=== PATIENT | female | born 1970 | race Caucasian/White ===

== ENCOUNTER → 2019-08-06 | Outpatient (CLI) | payer OTHER ==
--- NOTE | 2019-08-06 22:36 | XCELERA REPORT ---
[address] [address] Transthoracic Echocardiogram Report Name: IMELDA ROJAS Age: 48 yrs Gender: Female : 1970 Patient Status: Outpatient Patient Location: [facility] Study Date: 08/06/2019 03:49 PM Height: 66 in Weight: 163 lb BSA: 1.8 m2 Procedure: A complete two-dimensional transthoracic echocardiogram was performed (2D, M-mode, spectral and color flow Doppler). The study was technically adequate with some images being suboptimal in quality. Reason For Study: SOB Ordering Physician: JENNIFER ZAYAS Performed By: Gina Major Interpretation Summary The left ventricular ejection fraction is normal. There is borderline concentric left ventricular hypertrophy. Doppler measurements suggest impaired left ventricular relaxation, which is associated with grade I/IV or mild diastolic dysfunction The left ventricle is grossly normal size. Wall motion cannot be accurately commented on, but no definite regional wall motion abnormalities noted. The right ventricular systolic function is normal. The left atrial size is normal. The right atrium is normal. There is a trace amount of mitral regurgitation There is no mitral valve stenosis. No aortic regurgitation is present. There is no aortic valve stenosis There is a trace or physiologic amount of tricuspid regurgitation Right ventricular systolic pressure is at the upper limits of normal The aortic root is not well visualized but is probably normal size. The inferior vena cava was not well visualized There is no pericardial effusion. MMode/2D Measurements & Calculations RVDd: 2.5 cm LVIDd: 4.1 cm FS: 33.9 % Ao root diam: 2.7 cm IVSd: 0.55 cm LVIDs: 2.7 cm EDV(Teich): 73.3 ml Ao root area: 5.8 cm2 LVPWd: 0.67 cm ESV(Teich): 27.0 ml EF(Teich): 63.2 % Doppler Measurements & Calculations MV E max jessica: MV dec slope: Ao V2 max: LV V1 max P.3 cm/sec 281.5 cm/sec2 129.7 cm/sec 3.9 mmHg MV A max jessica: MV dec time: 0.24 secAo max P.7 mmHgLV V1 max: 47.9 cm/sec 99.0 cm/sec MV E/A: 1.4 PA V2 max: PI end-d jessica: TR max jessica: 100.4 cm/sec 65.8 cm/sec 190.8 cm/sec PA max P.0 mmHg TR max P.6 mmHg Left Ventricle The left ventricle is grossly normal size. There is borderline concentric left ventricular hypertrophy. The left ventricular ejection fraction is normal. Doppler measurements suggest impaired left ventricular relaxation, which is associated with grade I/IV or mild diastolic dysfunction. Wall motion cannot be accurately commented on, but no definite regional wall motion abnormalities noted. Right Ventricle The right ventricle is grossly normal size. There is normal right ventricular wall thickness. The right ventricular systolic function is normal. Atria The right atrium is normal. The left atrial size is normal. Interarterial septum not well visualized and not well dopplered. Cannot comment on ASD/PFO presence. Mitral Valve The mitral valve leaflets are sclerotic, but show no functional abnormalities. There is no mitral valve stenosis. There is a trace amount of mitral regurgitation. Aortic Valve The aortic valve is grossly normal. There is no aortic valve stenosis. No aortic regurgitation is present. Tricuspid Valve The tricuspid valve is not well visualized, but is grossly normal. There is no tricuspid stenosis. There is a trace or physiologic amount of tricuspid regurgitation. Right ventricular systolic pressure is at the upper limits of normal. Pulmonic Valve The pulmonic valve is not well visualized. Great Vessels The aortic root is not well visualized but is probably normal size. The inferior vena cava was not well visualized. Effusions There is no pericardial effusion. : JENNIFER ZAYAS Shyamal
== END ==
LOC: SP 14:39
PROVIDERS: ATTEND Physician Assistant
DX: R06.09 Other forms of dyspnea (principal)
CPT/HCPCS: 93306

== ENCOUNTER → 2020-06-07 | Outpatient (CLI) | payer OTHER ==
[2020-06-07 16:09] LABS: ALBUMIN 4.2 g/dL (3.5-5.0); ALKALINE PHOSPHATASE 62 U/L (38-126); ASPARTATE AMINO TRANSFERASE 27 U/L (14-36); BILIRUBIN,DIRECT 0.2 mg/dL (0.0-0.4); BILIRUBIN,TOTAL 0.8 mg/dL (0.2-1.3); CHOLESTEROL 137.16 mg/dL (0-200); TOTAL PROTEIN 7.3 g/dL (6.3-8.2); TRIGLYCERIDES 114 mg/dL (<150)
[2020-06-07 16:20] LABS: DIRECT LDL 76 mg/dL (<100)
== END ==
LOC: OD 15:09
PROVIDERS: ATTEND Physician Assistant
DX: E78.00 Pure hypercholesterolemia, unspecified (principal); Z79.899 Other long term (current) drug therapy
CPT/HCPCS: 36415; 80061; 80076

== ENCOUNTER → 2020-08-10 | Outpatient (CLI) | payer OTHER ==
[2020-08-10 09:05] LABS: ALBUMIN 4.3 g/dL (3.5-5.0); ALKALINE PHOSPHATASE 76 U/L (38-126); ASPARTATE AMINO TRANSFERASE 32 U/L (14-36); BILIRUBIN,DIRECT 0.1 mg/dL (0.0-0.4); BILIRUBIN,TOTAL 0.9 mg/dL (0.2-1.3); CHOLESTEROL 168.03 mg/dL (0-200); TOTAL PROTEIN 7.2 g/dL (6.3-8.2); TRIGLYCERIDES 124 mg/dL (<150)
[2020-08-10 09:15] LABS: DIRECT LDL 103 mg/dL (<100)
--- OUTSIDE RECORDS SUMMARY | 2020-08-11 18:00 | XMS REPORT ---
:1970 [facility] Address [facility] [place], [place] [address] [place] [id number] Care Team Providers Name Role Phone PCP, PER PATIENT Primary Care Physician Unavailable Allergies, Adverse Reactions, Alerts This patient has no known allergies or adverse reactions. Medications This patient has no known medications. Problems This patient has no known problems. Procedures This patient has no known procedures. Results Test Description Test Time Test Comments Text Results Atomic Results Result Comments SARS-COV-2, VALERY Test Item Value Reference Range Comments SARS-COV-2, VALERY LDTNOT - Not NOT DETECTED NOT DETECTEDTHIS NUCLEIC ACID (test code = Detected AMPLIFICATION TE ST WAS DEVELOPED 29226-9) AND ITS PERFORMA NCECHARACTERISTICS DETERMINED BY [employer]. NUCLEIC ACIDAMPL IFICATION TESTS INCLUDE PCR AND TMA. THIS TEST HAS NOT BEEN FDACLEA RED OR APPROVED. THIS TEST HAS BE EN AUTHORIZED BY FDA UNDER ANEMER GENCY USE AUTHORIZATION (E UA). THIS TEST IS ONLY AUTHORIZED FORTHE DURATION OF TIME THE DECLARA TION THAT CIRCUMSTANCES EX ISTJUSTIFYING THE AUTHORIZATION OF THE EMERGENCY USE OF IN VITRODIAGN OSTIC TESTS FOR DETECTION OF FERNANDA S-COV-2 VIRUS AND/OR DIAGNOSIS OF COVID-19 INFECTION UNDER SECTION 564(B)(1) OF THE ACT, 21 [place] .[place].360BBB-3(B) (1), UNLESS THE AUTHORIZATION IS TERMINATED OR RE VOKEDSOONER.WHEN DIAGNOSTIC TESTI NG IS NEGATIVE, THE POSSIBILITY OF A FALSENEGATIVE RESULT SHOULD BE CONSIDERED IN THE CONTEXT OF A PAT IENT'SRECENT EXPOSURES AND TH E PRESENCE OF CLINICAL SIGNS A ND SYMPTOMSCONSISTE NT WITH COVID-19. AN INDIVIDUAL WI THOUT SYMPTOMS OF COVID-19AND WHO IS NOT SHEDDING SARS-COV-2 VIRUS WOULD EXPECT TO HAVE ANEGATIVE ( NOT DETECTED) RESULT IN THIS A SSAY. SARS-COV-2, VALERY Test Item Value Reference Range Comments SARS-COV-2, VALERY LDTNOT - Not NOT DETECTED NOT DETECTEDTHIS NUCLEIC ACID (test code = Detected AMPLIFICATION TE ST WAS DEVELOPED AND 41985-3) ITS PERFORMANCEC HARACTERISTICS DETERMINED BY [facility] [employer]. NUCLEIC ACIDAMPL IFICATION TESTS INCLUDE PCR AND TMA. THIS TEST HAS NOT BEEN FDACLEA RED OR APPROVED. THIS TEST HAS BE EN AUTHORIZED BY FDA UNDER ANEMERGENC Y USE AUTHORIZATION (EUA). THIS TEST IS ONLY AUTHORIZED FORTHE DURATION OF TIME THE DECLARATION THAT CIRCUMSTANCES EXISTJUSTIFYING THE AUTHORIZATION OF THE EMERGENCY US E OF IN VITRODIAGNOSTIC TESTS FOR DETECTION OF SARS-COV-2 ONOFRE AND/OR DIAGNOSISOF COVI D-19 INFECTION UNDER SECTION 564(B)(1 ) OF THE ACT, 21 U.S.C.360BBB-3(B ) (1), UNLESS THE AUTHORIZATION IS TERMINATED OR REVOKEDSOONER.WH EN DIAGNOSTIC TESTING IS NEGAT ROSALIA, THE POSSIBILITY OF A FALSENEGATI VE RESULT SHOULD BE CONSIDERED IN TH E CONTEXT OF A PATIENT'SRECENT EXPOSURES AND THE PRESENCE OF CLIN ICAL SIGNS AND SYMPTOMSCONSISTE NT WITH COVID-19. AN INDIVIDUAL WITHO UT SYMPTOMS OF COVID-19AND WHO IS NOT SHEDDING SARS-COV-2 VIRUS WOULD EXPECT TO HAVE ANEGATIVE ( NOT DETECTED) RESULT IN THIS ASSAY. Encounters Start End Encounter Admission Attending Care Care Encounter Date/Time Date/Time Type Type Clinicians Facility Department ID 2017-07-09 2017-07-09 [facility] [id number] 14:56:39 15:44:18 [id number] 2017-07-09 2017-07-09 [facility] [id number] 00:00:00 00:00:00 _[id number] Payers Payer Name Policy Type Policy Number Effective Date Expiration D [facility] HEALTH PLAN [id number] 2016 00:00:00 Social History This patient has no known social history. Vital Signs This patient has no known vital signs.
== END ==
LOC: OD 07:57
PROVIDERS: ATTEND Physician Assistant
DX: E78.00 Pure hypercholesterolemia, unspecified (principal); Z79.899 Other long term (current) drug therapy
CPT/HCPCS: 36415; 80061; 80076